=== PATIENT | female | born 1950 | race African-American/Black ===

== ENCOUNTER 2021-12-21 15:59 | Inpatient (IN) | payer OTHER ==
[2021-12-21 16:19] LABS: #Eosinphils 0.2 thou/uL (0.0-0.7); #Lymphocytes 2.1 thou/uL (1.20-3.40); #Monocytes 0.4 thou/uL (0.11-0.59); #Neutrophils 3.9 thou/uL (1.40-6.50); %Basophils 0.5 % (0.0-1.0); %Lymphocytes 31.1 % (21.0-51.0); %Monocytes 6.7 % (0.0-10.0); %Neutrophils 58.7 % (42.0-75.0); Mean Corpuscular Hemoglobin 29.8 pg (27.0-31.0); Mean Corpuscular Volume 90.2 fL (78.0-98.0); Mean Platelet Volume 7.2 fL (7.4-10.4); Platelet Count 279 thou/uL (130-400); RBC Distribution Width 11.4 % (11.5-14.5); Red Blood Cell (RBC) Count 2.69 mill/uL (4.20-5.40); White Blood Cell (WBC) Count 6.6 thou/uL (4.8-10.8)
[2021-12-21 16:37] LABS: Anion Gap 15 mmol/L (10-20); Carbon Dioxide 18 mmol/L (23-31); Chloride 111 mmol/L (98-107); Potassium 4.7 mmol/L (3.5-5.1); Sodium 139 mmol/L (136-145)
[2021-12-21 16:38] LABS: ALT (SGPT) 12 U/L (8-55); AST (SGOT) 13 U/L (5-34); Albumin 3.5 g/dL (3.4-4.8); Alkaline Phosphatase 45 U/L (40-110); BUN (Urea Nitrogen) 45 mg/dL (9.8-20.1); Bilirubin, Total 0.4 mg/dL (0.2-1.2); CK (CPK) 55 U/L (29-168); Calc. Creatinine Clearance 0 mL/min (70-130); Calcium 9.8 mg/dL (7.8-10.44); Estimated GFR 14; Globulin 3.1 g/dL (2.4-3.5); Glucose 135 mg/dL (80-115); Protein, Total 6.6 g/dL (5.8-8.1)
[2021-12-21] MEDS ORDERED: Sodium Chloride 0.9% 1,000 ML IV SCH (18:30)
[2021-12-21] MEDS ORDERED: Acetaminophen 325 MG TAB PO PRN (18:30)
[2021-12-21] MEDS ORDERED: Ondansetron PF 4 MG/2 ML Vial IVP PRN (18:30)
[2021-12-21] MEDS ORDERED: Dextrose 50% Abboject 50 ML SYRINGE SLOW IVP PRN (18:40)
[2021-12-21] MEDS ORDERED: Dextrose 5% in Water 1,000 ML IV PRN (18:40)
[2021-12-21] MEDS ORDERED: HumaLOG 300 UNITS/3 ML VIAL SC PRN ×2 (18:40)
[2021-12-21 19:29] VITALS: BMI 20.5
[2021-12-21] MEDS ORDERED: hydrALAZINE 20 MG/ML VIAL SLOW IVP PRN (19:35)
[2021-12-21 19:44] LABS: Hemoglobin 9.3 g/dL (12.0-16.0)
[2021-12-21 20:09] LABS: Troponin I 0.015 ng/mL (< 0.028)
[2021-12-21] MEDS: Heparin 5,000 UNITS/ML VIAL SC SCH (20:35)
[2021-12-21] MEDS ORDERED: Pantoprazole 40 MG VIAL IVP SCH (21:00)
[2021-12-21] MEDS ORDERED: Docusate 100 MG CAP PO SCH (21:30)
[2021-12-21] MEDS ORDERED: Carvedilol 25 MG TAB PO SCH (21:30)
[2021-12-21] MEDS ORDERED: NIFEdipine XL 90 MG TAB PO SCH (21:30)
[2021-12-21] MEDS ORDERED: busPIRone HCl 5 MG TAB PO SCH (21:30)
[2021-12-21] MEDS ORDERED: Gabapentin 300 MG CAP PO SCH (21:30)
[2021-12-21] MEDS ORDERED: hydrALAZINE 25 MG TAB PO SCH (21:30)
[2021-12-21] MEDS: Melatonin 3 MG TAB PO PRN (22:09)
[2021-12-21 23:02] LABS: Troponin I 0.014 ng/mL (< 0.028)
[2021-12-22 05:09] LABS: #Basophils 0.1 thou/uL (0.0-0.2); #Eosinphils 0.3 thou/uL (0.0-0.7); #Lymphocytes 1.9 thou/uL (1.20-3.40); #Monocytes 0.6 thou/uL (0.11-0.59); #Neutrophils 4.1 thou/uL (1.40-6.50); %Basophils 0.9 % (0.0-1.0); %Eosinophils 3.9 % (0.0-10.0); %Lymphocytes 27.3 % (21.0-51.0); %Monocytes 8.6 % (0.0-10.0); %Neutrophils 59.3 % (42.0-75.0); Hemoglobin 7.9 g/dL (12.0-16.0); Mean Corpuscular HGB CONC 33.5 g/dL (32.0-36.0); Mean Corpuscular Hemoglobin 30.6 pg (27.0-31.0); Mean Corpuscular Volume 91.3 fL (78.0-98.0); Mean Platelet Volume 7.5 fL (7.4-10.4); Platelet Count 272 thou/uL (130-400); RBC Distribution Width 11.6 % (11.5-14.5); White Blood Cell (WBC) Count 6.8 thou/uL (4.8-10.8)
[2021-12-22 05:32] LABS: ALT (SGPT) 10 U/L (8-55); AST (SGOT) 10 U/L (5-34); Albumin 3.2 g/dL (3.4-4.8); Alkaline Phosphatase 41 U/L (40-110); Anion Gap 12 mmol/L (10-20); BUN (Urea Nitrogen) 42 mg/dL (9.8-20.1); Calc. Creatinine Clearance 14 mL/min (70-130); Calcium 9.6 mg/dL (7.8-10.44); Chloride 118 mmol/L (98-107); Estimated GFR 15; Globulin 2.8 g/dL (2.4-3.5); Glucose 114 mg/dL (80-115); Potassium 4.6 mmol/L (3.5-5.1); Sodium 144 mmol/L (136-145)
[2021-12-22 05:33] LABS: Hemoglobin A1c 6.3 % (4.0-6.0)
[2021-12-22 05:41] LABS: Bilirubin, Total 0.4 mg/dL (0.2-1.2); Carbon Dioxide 19 mmol/L (23-31)
[2021-12-22] MEDS: NIFEdipine XL 90 MG TAB PO SCH ×2 (08:20→20:43)
[2021-12-22] MEDS: Calcitriol 0.25 MCG CAP PO SCH (08:21)
[2021-12-22] MEDS: Sodium Bicarbonate Tab 325 MG TAB PO SCH (08:21)
[2021-12-22] MEDS: hydrALAZINE 25 MG TAB PO SCH ×4 (08:21→20:45)
[2021-12-22] MEDS: Gabapentin 300 MG CAP PO SCH ×3 (08:22→20:43)
[2021-12-22] MEDS: Allopurinol 100 MG TAB PO SCH (08:22)
[2021-12-22] MEDS: busPIRone HCl 5 MG TAB PO SCH ×2 (08:22→20:43)
[2021-12-22] MEDS: Heparin 5,000 UNITS/ML VIAL SC SCH ×2 (08:23→20:45)
[2021-12-22] MEDS: Pantoprazole 40 MG VIAL IVP SCH (08:23)
[2021-12-22] MEDS: Carvedilol 25 MG TAB PO SCH ×2 (08:23→17:57)
[2021-12-22] MEDS: Lactated Ringer's 1,000 ML IV SCH (09:09)
[2021-12-22] MEDS ORDERED: hydrALAZINE 25 MG TAB PO SCH (18:00)
[2021-12-22] MEDS: Melatonin 3 MG TAB PO PRN (20:43)
[2021-12-22] MEDS: Docusate 100 MG CAP PO PRN (22:06)
[2021-12-23] MEDS: Lactated Ringer's 1,000 ML IV SCH (04:59)
[2021-12-23 06:38] LABS: Anion Gap 11 mmol/L (10-20); BUN (Urea Nitrogen) 39 mg/dL (9.8-20.1); Calc. Creatinine Clearance 16 mL/min (70-130); Calcium 9.9 mg/dL (7.8-10.44); Carbon Dioxide 19 mmol/L (23-31); Chloride 112 mmol/L (98-107); Estimated GFR 17; Glucose 80 mg/dL (80-115); Potassium 4.2 mmol/L (3.5-5.1); Sodium 138 mmol/L (136-145)
[2021-12-23 06:54] LABS: #Eosinphils 0.3 thou/uL (0.0-0.7); #Lymphocytes 1.8 thou/uL (1.20-3.40); #Monocytes 0.5 thou/uL (0.11-0.59); #Neutrophils 3.8 thou/uL (1.40-6.50); %Basophils 0.1 % (0.0-1.0); %Eosinophils 4.7 % (0.0-10.0); %Lymphocytes 27.5 % (21.0-51.0); %Monocytes 7.5 % (0.0-10.0); %Neutrophils 60.2 % (42.0-75.0); Hemoglobin 7.9 g/dL (12.0-16.0); Mean Corpuscular HGB CONC 32.5 g/dL (32.0-36.0); Mean Corpuscular Hemoglobin 29.5 pg (27.0-31.0); Mean Corpuscular Volume 90.8 fL (78.0-98.0); Mean Platelet Volume 7.5 fL (7.4-10.4); Platelet Count 274 thou/uL (130-400); RBC Distribution Width 11.5 % (11.5-14.5); Red Blood Cell (RBC) Count 2.66 mill/uL (4.20-5.40); White Blood Cell (WBC) Count 6.4 thou/uL (4.8-10.8)
[2021-12-23] MEDS: Carvedilol 25 MG TAB PO SCH (08:14)
[2021-12-23] MEDS: NIFEdipine XL 90 MG TAB PO SCH (08:14)
[2021-12-23] MEDS: hydrALAZINE 25 MG TAB PO SCH ×2 (08:14→14:54)
[2021-12-23] MEDS: Allopurinol 100 MG TAB PO SCH (08:14)
[2021-12-23] MEDS: Calcitriol 0.25 MCG CAP PO SCH (08:15)
[2021-12-23] MEDS: Gabapentin 300 MG CAP PO SCH ×2 (08:15→14:52)
[2021-12-23] MEDS: busPIRone HCl 5 MG TAB PO SCH (08:15)
[2021-12-23] MEDS: Sodium Bicarbonate Tab 325 MG TAB PO SCH (08:15)
[2021-12-23] MEDS: Pantoprazole 40 MG VIAL IVP SCH (08:16)
[2021-12-23] MEDS: Heparin 5,000 UNITS/ML VIAL SC SCH (08:26)
[2021-12-23] MEDS: Docusate 100 MG CAP PO PRN (12:21)
[2021-12-23 15:55] VITALS: BP 113/59; TEMP 97.6
== END 2021-12-23 16:04 | disposition home or self-care (01) | DRG 683 ==
LOC: ERS 15:59 → 2SW 18:16 → OBSVTOIN 12-22 17:29
PROVIDERS: ADMIT Hospitalist; ATTEND Hospitalist
DX: N17.9 Acute kidney failure, unspecified (principal); I13.0 Hypertensive heart and chronic kidney disease with heart failure and stage 1 through stage 4 chronic kidney disease, or unspecified chronic kidney disease; N18.4 Chronic kidney disease, stage 4 (severe); D63.1 Anemia in chronic kidney disease; E11.22 Type 2 diabetes mellitus with diabetic chronic kidney disease; F41.9 Anxiety disorder, unspecified; Z98.51 Tubal ligation status; Z79.899 Other long term (current) drug therapy; Z88.5 Allergy status to narcotic agent
CPT/HCPCS: 36415; 36416; 71045; 74176; 80048; 80053; 82550; 83036; 83605; 83690; 83880; 84484; 85025; 86850; 86900; 86901; 93005; 93306; 96360; 96361; 96372; 96374; 96376; C9113; G0378; J1644; J7050; J7120; U0003; U0005

== ENCOUNTER 2022-01-03 14:31 | Inpatient (IN) | payer OTHER ==
[2022-01-03] MEDS ORDERED: Cefepime 2 GM VIAL ONE (14:52)
[2022-01-03 15:05] LABS: #Eosinphils 0.1 thou/uL (0.0-0.7); #Lymphocytes 1.1 thou/uL (1.20-3.40); #Monocytes 1.2 thou/uL (0.11-0.59); #Neutrophils 7.1 thou/uL (1.40-6.50); %Basophils 0.3 % (0.0-1.0); %Lymphocytes 11.4 % (21.0-51.0); %Monocytes 12.3 % (0.0-10.0); Hemoglobin 9.4 g/dL (12.0-16.0); Mean Corpuscular HGB CONC 33.5 g/dL (32.0-36.0); Mean Corpuscular Hemoglobin 29.5 pg (27.0-31.0); Mean Corpuscular Volume 87.9 fL (78.0-98.0); Mean Platelet Volume 7.7 fL (7.4-10.4); Platelet Count 295 thou/uL (130-400); RBC Distribution Width 11.8 % (11.5-14.5); Red Blood Cell (RBC) Count 3.19 mill/uL (4.20-5.40); White Blood Cell (WBC) Count 9.4 thou/uL (4.8-10.8)
[2022-01-03 15:28] LABS: ALT (SGPT) 12 U/L (8-55); AST (SGOT) 14 U/L (5-34); Albumin 4.2 g/dL (3.4-4.8); Alkaline Phosphatase 51 U/L (40-110); Anion Gap 13 mmol/L (10-20); BUN (Urea Nitrogen) 54 mg/dL (9.8-20.1); Bilirubin, Total 0.2 mg/dL (0.2-1.2); CK (CPK) 53 U/L (29-168); Calc. Creatinine Clearance 0 mL/min (70-130); Calcium 10.8 mg/dL (7.8-10.44); Carbon Dioxide 22 mmol/L (23-31); Chloride 110 mmol/L (98-107); Estimated GFR 15; Globulin 3.8 g/dL (2.4-3.5); Glucose 125 mg/dL (80-115); Lipase 24 U/L (8-78); Magnesium 1.6 mg/dL (1.6-2.6); Potassium 4.3 mmol/L (3.5-5.1); Sodium 141 mmol/L (136-145)
[2022-01-03] MEDS ORDERED: Vancomycin 1 GM/200 ML BAG ONE (15:37)
[2022-01-03 15:50] LABS: CKMB 0.5 ng/mL (0-6.6)
[2022-01-03] MEDS ORDERED: Aspirin Chewable 81 MG TAB ONE (16:15)
[2022-01-03 18:14] LABS: Troponin I 0.038 ng/mL (< 0.028)
[2022-01-03] MEDS ORDERED: Ondansetron PF 4 MG/2 ML Vial IVP PRN (21:24)
[2022-01-03] MEDS ORDERED: hydrALAZINE 20 MG/ML VIAL SLOW IVP PRN (21:28)
[2022-01-03] MEDS ORDERED: Bisacodyl 10 MG SUPP PR PRN (21:28)
[2022-01-03] MEDS ORDERED: Acetaminophen 650 MG Suppository PR PRN (21:31)
[2022-01-03 22:20] LABS: Troponin I 0.092 ng/mL (< 0.028)
[2022-01-03] MEDS: Heparin 5,000 UNITS/ML VIAL SC SCH (22:27)
[2022-01-03] MEDS: Sodium Chloride 0.9% 1,000 ML IV SCH (22:30)
[2022-01-03 23:07] LABS: Bacteria/HPF None Seen HPF (None Seen); Bilirubin Negative (Negative); Blood, Urine Trace (Negative); Clarity Clear (Clear); Glucose, Urine (Dipstick) 30 mg/dL (Negative); Ketone, Urine Negative (Negative); Leukocyte Negative Leu/uL (Negative); Nitrite Negative (Negative); Protein, Urine (Dipstick) 100 mg/dL (Neg-Trace); RBC/HPF 0-3 HPF (0-3); Specific Gravity, Urine 1.011 (1.002-1.036); Squamous Epithelial 0-3 HPF (0-3); Urobilinogen Normal mg/dL (Less than 2); WBC/HPF 0-3 HPF (0-3); pH, Urine 5.5 (5.0-9.0)
[2022-01-03 23:08] LABS: Urine Culture Reflex No No
[2022-01-04] MEDS ORDERED: Dextrose 5% in Water 1,000 ML IV PRN (00:25)
[2022-01-04] MEDS ORDERED: Dextrose 50% Abboject 50 ML SYRINGE SLOW IVP PRN (00:25)
[2022-01-04] MEDS ORDERED: HumaLOG 300 UNITS/3 ML VIAL SC PRN ×2 (00:25)
[2022-01-04 01:30] LABS: Amphetamine Not Detected (NotDetected); Barbiturates Screen Not Detected (NotDetected); Benzodiazepine Screen Not Detected (NotDetected); Cocaine Metabolite Screen Not Detected (NotDetected); Methadone Not Detected (NotDetected); Methamphetamine Not Detected (NotDetected); Opiate Screen Not Detected (NotDetected); Oxycodone Screen Not Detected (NotDetected); Phencyclidine (PCP) Not Detected (NotDetected); THC/Cannabinoid Screen Not Detected (NotDetected); Tricyclic Screen Not Detected (NotDetected)
[2022-01-04 01:56] VITALS: BMI 21.9
[2022-01-04] MEDS: Cefepime 1 GM in Sodium Chloride 0.9% 100 ML IVPB SCH ×2 (02:30→15:21)
[2022-01-04 05:14] LABS: #Eosinphils 0.1 thou/uL (0.0-0.7); #Lymphocytes 1.7 thou/uL (1.20-3.40); #Monocytes 1.4 thou/uL (0.11-0.59); #Neutrophils 15.6 thou/uL (1.40-6.50); %Basophils 0.1 % (0.0-1.0); %Eosinophils 0.4 % (0.0-10.0); %Lymphocytes 9.2 % (21.0-51.0); %Monocytes 7.3 % (0.0-10.0); Hemoglobin 8.6 g/dL (12.0-16.0); Mean Corpuscular HGB CONC 30.1 g/dL (32.0-36.0); Mean Corpuscular Hemoglobin 27.2 pg (27.0-31.0); Mean Corpuscular Volume 90.2 fL (78.0-98.0); Mean Platelet Volume 7.9 fL (7.4-10.4); Platelet Count 203 thou/uL (130-400); Red Blood Cell (RBC) Count 3.15 mill/uL (4.20-5.40); White Blood Cell (WBC) Count 18.7 thou/uL (4.8-10.8)
[2022-01-04 05:35] LABS: Vancomycin, Random 12.6 ug/mL (See Comment)
[2022-01-04] MEDS ORDERED: Vancomycin HCl 500 MG in Sodium Chloride 0.9% 100 ML IVPB SCH (08:00)
[2022-01-04] MEDS: Heparin 5,000 UNITS/ML VIAL SC SCH ×2 (09:19→21:20)
[2022-01-04 09:49] LABS: ALT (SGPT) 12 U/L (8-55); AST (SGOT) 16 U/L (5-34); Albumin 3.6 g/dL (3.4-4.8); Alkaline Phosphatase 43 U/L (40-110); Anion Gap 14 mmol/L (10-20); BUN (Urea Nitrogen) 47 mg/dL (9.8-20.1); Bilirubin, Total 0.4 mg/dL (0.2-1.2); Calc. Creatinine Clearance 18 mL/min (70-130); Calcium 9.9 mg/dL (7.8-10.44); Carbon Dioxide 18 mmol/L (23-31); Chloride 116 mmol/L (98-107); Estimated GFR 18; Globulin 3.1 g/dL (2.4-3.5); Glucose 98 mg/dL (80-115); Protein, Total 6.7 g/dL (5.8-8.1); Sodium 144 mmol/L (136-145); Troponin I 0.111 ng/mL (< 0.028)
[2022-01-04] MEDS: Calcitriol 0.25 MCG CAP PO SCH (11:25)
[2022-01-04] MEDS: Allopurinol 100 MG TAB PO SCH (11:26)
[2022-01-04] MEDS: NIFEdipine XL 90 MG TAB PO SCH ×2 (11:26→21:20)
[2022-01-04] MEDS: hydrALAZINE 25 MG TAB PO SCH ×4 (11:27→21:20)
[2022-01-04] MEDS: Carvedilol 25 MG TAB PO SCH ×2 (11:27→21:19)
[2022-01-04] MEDS: Sodium Chloride 0.9% 1,000 ML IV SCH (13:47)
[2022-01-04] MEDS ORDERED: Vancomycin 0.001 GM in Premix Bag 1 BAG IVPB SCH (16:00)
[2022-01-04] MEDS: Atorvastatin Calcium 40 MG TAB PO SCH (21:18)
[2022-01-05] MEDS: Cefepime 1 GM in Sodium Chloride 0.9% 100 ML IVPB SCH ×2 (03:08→13:52)
[2022-01-05] MEDS: Sodium Chloride 0.9% 1,000 ML IV SCH ×2 (03:21→16:48)
[2022-01-05] MEDS ORDERED: Acetaminophen 325 MG TAB PO PRN (03:21)
[2022-01-05] MEDS: Carvedilol 25 MG TAB PO SCH ×2 (08:24→21:50)
[2022-01-05] MEDS: NIFEdipine XL 90 MG TAB PO SCH ×2 (08:24→21:51)
[2022-01-05] MEDS: Calcitriol 0.25 MCG CAP PO SCH (08:24)
[2022-01-05] MEDS: Allopurinol 100 MG TAB PO SCH (08:24)
[2022-01-05] MEDS: hydrALAZINE 25 MG TAB PO SCH ×4 (08:24→21:50)
[2022-01-05] MEDS: Heparin 5,000 UNITS/ML VIAL SC SCH ×2 (08:25→21:51)
[2022-01-05 08:56] LABS: #Eosinphils 0.2 thou/uL (0.0-0.7); #Lymphocytes 2.3 thou/uL (1.20-3.40); #Monocytes 0.8 thou/uL (0.11-0.59); #Neutrophils 9.9 thou/uL (1.40-6.50); %Basophils 0.1 % (0.0-1.0); %Eosinophils 1.4 % (0.0-10.0); %Lymphocytes 17.2 % (21.0-51.0); %Monocytes 6.4 % (0.0-10.0); %Neutrophils 74.9 % (42.0-75.0); Hemoglobin 7.8 g/dL (12.0-16.0); Mean Corpuscular HGB CONC 33.5 g/dL (32.0-36.0); Mean Corpuscular Hemoglobin 29.9 pg (27.0-31.0); Mean Corpuscular Volume 89.3 fL (78.0-98.0); Mean Platelet Volume 7.7 fL (7.4-10.4); Platelet Count 217 thou/uL (130-400); Red Blood Cell (RBC) Count 2.59 mill/uL (4.20-5.40); White Blood Cell (WBC) Count 13.2 thou/uL (4.8-10.8)
[2022-01-05 09:12] LABS: Vancomycin, Random 14.1 ug/mL (See Comment)
[2022-01-05 09:48] LABS: Anion Gap 13 mmol/L (10-20); BUN (Urea Nitrogen) 46 mg/dL (9.8-20.1); Calc. Creatinine Clearance 18 mL/min (70-130); Calcium 9.6 mg/dL (7.8-10.44); Carbon Dioxide 16 mmol/L (23-31); Chloride 114 mmol/L (98-107); Estimated GFR 19; Glucose 78 mg/dL (80-115); Potassium 3.6 mmol/L (3.5-5.1); Sodium 139 mmol/L (136-145)
[2022-01-05 09:54] LABS: Troponin I 0.073 ng/mL (< 0.028)
[2022-01-05] MEDS: Vancomycin HCl 500 MG in Sodium Chloride 0.9% 100 ML IVPB SCH (11:13)
[2022-01-05] MEDS: Benzonatate 100 MG CAP PO SCH ×2 (13:52→21:50)
[2022-01-05 16:39] LABS: Troponin I 0.048 ng/mL (< 0.028)
[2022-01-05] MEDS: Atorvastatin Calcium 40 MG TAB PO SCH (21:50)
[2022-01-05 22:27] LABS: Troponin I 0.428 ng/mL (< 0.028)
[2022-01-05] MEDS ORDERED: Heparin 10,000 UNITS/ 10 ML VIAL SLOW IVP SCH (22:45)
[2022-01-05] MEDS ORDERED: Heparin 25,000 units/D5W 500 ML IVPB SCH ×2 (22:45→23:43)
[2022-01-06 01:02] LABS: Hemoglobin 7.1 g/dL (12.0-16.0); Platelet Count 187 thou/uL (130-400)
[2022-01-06 02:39] LABS: #Eosinphils 0.2 thou/uL (0.0-0.7); #Lymphocytes 1.8 thou/uL (1.20-3.40); #Monocytes 0.6 thou/uL (0.11-0.59); #Neutrophils 7.8 thou/uL (1.40-6.50); %Basophils 0.4 % (0.0-1.0); %Eosinophils 2.1 % (0.0-10.0); %Lymphocytes 17.1 % (21.0-51.0); %Monocytes 5.7 % (0.0-10.0); %Neutrophils 74.8 % (42.0-75.0); Hemoglobin 6.9 g/dL (12.0-16.0); Mean Corpuscular HGB CONC 34.3 g/dL (32.0-36.0); Mean Corpuscular Hemoglobin 30.3 pg (27.0-31.0); Mean Corpuscular Volume 88.5 fL (78.0-98.0); Mean Platelet Volume 7.9 fL (7.4-10.4); Platelet Count 193 thou/uL (130-400); Red Blood Cell (RBC) Count 2.27 mill/uL (4.20-5.40); White Blood Cell (WBC) Count 10.5 thou/uL (4.8-10.8)
[2022-01-06 03:09] LABS: Anion Gap 13 mmol/L (10-20); BUN (Urea Nitrogen) 42 mg/dL (9.8-20.1); Calc. Creatinine Clearance 19 mL/min (70-130); Calcium 9.6 mg/dL (7.8-10.44); Carbon Dioxide 15 mmol/L (23-31); Chloride 114 mmol/L (98-107); Estimated GFR 20; Glucose 107 mg/dL (80-115); Potassium 3.6 mmol/L (3.5-5.1); Sodium 138 mmol/L (136-145)
[2022-01-06] MEDS: Cefepime 1 GM in Sodium Chloride 0.9% 100 ML IVPB SCH ×2 (03:23→16:09)
[2022-01-06 05:03] LABS: Troponin I 0.054 ng/mL (< 0.028)
[2022-01-06] MEDS: Sodium Chloride 0.9% 1,000 ML IV SCH (09:07)
[2022-01-06] MEDS: NIFEdipine XL 90 MG TAB PO SCH ×2 (09:09→22:06)
[2022-01-06] MEDS: Carvedilol 25 MG TAB PO SCH ×2 (09:09→22:06)
[2022-01-06] MEDS: hydrALAZINE 25 MG TAB PO SCH ×4 (09:10→22:07)
[2022-01-06] MEDS: Benzonatate 100 MG CAP PO SCH ×3 (09:10→22:07)
[2022-01-06] MEDS: Calcitriol 0.25 MCG CAP PO SCH (09:10)
[2022-01-06] MEDS: Allopurinol 100 MG TAB PO SCH (09:11)
[2022-01-06] MEDS: Pantoprazole 40 MG VIAL IVP SCH ×2 (09:11→22:08)
[2022-01-06 10:31] LABS: Hemoglobin 8.9 g/dL (12.0-16.0)
[2022-01-06 10:38] LABS: Vancomycin, Trough 15.4 ug/mL
[2022-01-06] MEDS ORDERED: Vancomycin HCl 500 MG in Sodium Chloride 0.9% 100 ML IVPB SCH (11:00)
[2022-01-06] MEDS ORDERED: Vancomycin HCl 250 MG in Sodium Chloride 0.9% 100 ML IVPB SCH (11:45)
[2022-01-06] MEDS: Vancomycin HCl 500 MG in Sodium Chloride 0.9% 100 ML IVPB SCH (12:40)
[2022-01-06 15:10] LABS: Iron 58 ug/dL (50-170); Iron Binding Capacity, Total 128 mcg/dL (265-497)
[2022-01-06] MEDS: Atorvastatin Calcium 40 MG TAB PO SCH (22:07)
[2022-01-07] MEDS: traZODone HCl 50 MG TAB PO PRN (01:25)
[2022-01-07] MEDS: Sodium Chloride 0.9% 1,000 ML IV SCH ×2 (01:39→11:49)
[2022-01-07] MEDS: Cefepime 1 GM in Sodium Chloride 0.9% 100 ML IVPB SCH ×2 (03:48→13:57)
[2022-01-07 05:52] LABS: #Eosinphils 0.1 thou/uL (0.0-0.7); #Monocytes 0.8 thou/uL (0.11-0.59); #Neutrophils 7.1 thou/uL (1.40-6.50); %Eosinophils 1.2 % (0.0-10.0); %Neutrophils 78.8 % (42.0-75.0); Hemoglobin 9.2 g/dL (12.0-16.0); Mean Corpuscular HGB CONC 33.9 g/dL (32.0-36.0); Mean Corpuscular Hemoglobin 30.5 pg (27.0-31.0); Mean Corpuscular Volume 89.9 fL (78.0-98.0); Mean Platelet Volume 8.3 fL (7.4-10.4); Platelet Count 213 thou/uL (130-400); RBC Distribution Width 12.7 % (11.5-14.5); Red Blood Cell (RBC) Count 3.03 mill/uL (4.20-5.40)
[2022-01-07 06:16] LABS: Anion Gap 12 mmol/L (10-20); BUN (Urea Nitrogen) 39 mg/dL (9.8-20.1); Calc. Creatinine Clearance 19 mL/min (70-130); Calcium 9.6 mg/dL (7.8-10.44); Carbon Dioxide 14 mmol/L (23-31); Chloride 116 mmol/L (98-107); Estimated GFR 20; Glucose 119 mg/dL (80-115); Potassium 3.5 mmol/L (3.5-5.1); Sodium 138 mmol/L (136-145)
[2022-01-07 09:43] LABS: Vancomycin, Random 16.5 ug/mL (See Comment)
[2022-01-07] MEDS: NIFEdipine XL 90 MG TAB PO SCH ×2 (10:32→22:15)
[2022-01-07] MEDS: Calcitriol 0.25 MCG CAP PO SCH (10:32)
[2022-01-07] MEDS: Pantoprazole 40 MG VIAL IVP SCH ×2 (10:32→22:16)
[2022-01-07] MEDS: Allopurinol 100 MG TAB PO SCH (10:33)
[2022-01-07] MEDS: hydrALAZINE 25 MG TAB PO SCH ×4 (10:33→22:14)
[2022-01-07] MEDS: Carvedilol 25 MG TAB PO SCH ×2 (10:33→22:14)
[2022-01-07] MEDS: Benzonatate 100 MG CAP PO SCH ×3 (10:46→22:20)
[2022-01-07] MEDS ORDERED: Vancomycin HCl 250 MG in Sodium Chloride 0.9% 100 ML IVPB SCH (11:00)
[2022-01-07] MEDS ORDERED: Polyethylene Glycol 3350 17 GM Packet PO PRN (11:27)
[2022-01-07 12:18] LABS: Bacteria/HPF 4+ HPF (None Seen); Bilirubin Negative (Negative); Blood, Urine Trace (Negative); Clarity Turbid (Clear); Glucose, Urine (Dipstick) Normal (Negative); Ketone, Urine Negative (Negative); Leukocyte 500 Leu/uL (Negative); Nitrite Negative (Negative); Protein, Urine (Dipstick) 100 mg/dL (Neg-Trace); Specific Gravity, Urine 1.012 (1.002-1.036); Squamous Epithelial 0-3 HPF (0-3); Urobilinogen Normal mg/dL (Less than 2); WBC/HPF 21-50 HPF (0-3); pH, Urine 5.5 (5.0-9.0)
[2022-01-07 12:19] LABS: Urine Culture Reflex Yes Yes
[2022-01-07] MEDS ORDERED: Calcium Carbonate 500 MG ChewTAB PO PRN (14:31)
[2022-01-07] MEDS ORDERED: Metoclopramide HCl 10 MG/2 ML VIAL IVP PRN (16:30)
[2022-01-07] MEDS: Acetaminophen 500 MG TAB PO PRN (16:58)
[2022-01-07] MEDS: Atorvastatin Calcium 40 MG TAB PO SCH (22:14)
[2022-01-07] MEDS: Senokot S 8.6-50 MG TAB PO SCH (22:16)
[2022-01-07 22:59] LABS: Hemoglobin 9.6 g/dL (12.0-16.0); Platelet Count 233 thou/uL (130-400)
[2022-01-08] MEDS: Cefepime 1 GM in Sodium Chloride 0.9% 100 ML IVPB SCH ×2 (02:10→13:55)
[2022-01-08] MEDS: Acetaminophen 500 MG TAB PO PRN (02:10)
[2022-01-08] MEDS: Sodium Chloride 0.9% 1,000 ML IV SCH ×2 (02:11→08:57)
[2022-01-08 07:08] LABS: #Eosinphils 0.1 thou/uL (0.0-0.7); #Lymphocytes 1.5 thou/uL (1.20-3.40); #Monocytes 0.7 thou/uL (0.11-0.59); #Neutrophils 7.5 thou/uL (1.40-6.50); %Basophils 0.4 % (0.0-1.0); %Eosinophils 0.6 % (0.0-10.0); %Lymphocytes 15.6 % (21.0-51.0); %Monocytes 6.9 % (0.0-10.0); %Neutrophils 76.5 % (42.0-75.0); Hemoglobin 8.5 g/dL (12.0-16.0); Mean Corpuscular HGB CONC 33.2 g/dL (32.0-36.0); Mean Corpuscular Volume 90.6 fL (78.0-98.0); Mean Platelet Volume 7.9 fL (7.4-10.4); Platelet Count 215 thou/uL (130-400); RBC Distribution Width 12.8 % (11.5-14.5); Red Blood Cell (RBC) Count 2.81 mill/uL (4.20-5.40); White Blood Cell (WBC) Count 9.8 thou/uL (4.8-10.8)
[2022-01-08 07:28] LABS: ALT (SGPT) 9 U/L (8-55); AST (SGOT) 13 U/L (5-34); Albumin 2.9 g/dL (3.4-4.8); Alkaline Phosphatase 35 U/L (40-110); Anion Gap 13 mmol/L (10-20); BUN (Urea Nitrogen) 40 mg/dL (9.8-20.1); Bilirubin, Total 0.3 mg/dL (0.2-1.2); Calc. Creatinine Clearance 18 mL/min (70-130); Calcium 9.5 mg/dL (7.8-10.44); Carbon Dioxide 13 mmol/L (23-31); Chloride 120 mmol/L (98-107); Estimated GFR 19; Globulin 2.8 g/dL (2.4-3.5); Glucose 94 mg/dL (80-115); Potassium 3.5 mmol/L (3.5-5.1); Protein, Total 5.7 g/dL (5.8-8.1); Sodium 142 mmol/L (136-145)
[2022-01-08] MEDS: Calcitriol 0.25 MCG CAP PO SCH (08:55)
[2022-01-08] MEDS: Senokot S 8.6-50 MG TAB PO SCH ×2 (08:56→20:30)
[2022-01-08] MEDS: Carvedilol 25 MG TAB PO SCH ×2 (08:56→20:30)
[2022-01-08] MEDS: Pantoprazole 40 MG VIAL IVP SCH ×2 (08:56→20:29)
[2022-01-08] MEDS: Allopurinol 100 MG TAB PO SCH (08:56)
[2022-01-08] MEDS: Famotidine/PF 20 mg/2ml Vial SLOW IVP SCH (08:56)
[2022-01-08] MEDS: hydrALAZINE 25 MG TAB PO SCH ×4 (08:56→20:30)
[2022-01-08] MEDS: Benzonatate 100 MG CAP PO SCH ×3 (08:57→20:31)
[2022-01-08] MEDS: NIFEdipine XL 90 MG TAB PO SCH ×2 (08:57→20:30)
[2022-01-08] MEDS ORDERED: Vancomycin HCl 250 MG in Sodium Chloride 0.9% 100 ML IVPB SCH (11:00)
[2022-01-08] MEDS: Atorvastatin Calcium 40 MG TAB PO SCH (20:30)
[2022-01-08] MEDS: traZODone HCl 50 MG TAB PO PRN (23:35)
[2022-01-09] MEDS: Sodium Chloride 0.9% 1,000 ML IV SCH ×3 (02:25→14:10)
[2022-01-09] MEDS: Cefepime 1 GM in Sodium Chloride 0.9% 100 ML IVPB SCH ×2 (03:27→14:10)
[2022-01-09] MEDS: Acetaminophen 500 MG TAB PO PRN (04:40)
[2022-01-09 04:59] LABS: #Eosinphils 0.1 thou/uL (0.0-0.7); #Lymphocytes 1.5 thou/uL (1.20-3.40); #Neutrophils 7.2 thou/uL (1.40-6.50); %Basophils 0.1 % (0.0-1.0); %Eosinophils 1.1 % (0.0-10.0); %Lymphocytes 15.1 % (21.0-51.0); %Monocytes 10.2 % (0.0-10.0); %Neutrophils 73.5 % (42.0-75.0); Mean Corpuscular HGB CONC 32.8 g/dL (32.0-36.0); Mean Corpuscular Hemoglobin 29.8 pg (27.0-31.0); Mean Corpuscular Volume 90.8 fL (78.0-98.0); Mean Platelet Volume 7.8 fL (7.4-10.4); Platelet Count 219 thou/uL (130-400); Red Blood Cell (RBC) Count 2.69 mill/uL (4.20-5.40); White Blood Cell (WBC) Count 9.8 thou/uL (4.8-10.8)
[2022-01-09 05:19] LABS: ALT (SGPT) 8 U/L (8-55); AST (SGOT) 12 U/L (5-34); Albumin 2.8 g/dL (3.4-4.8); Alkaline Phosphatase 34 U/L (40-110); Anion Gap 12 mmol/L (10-20); BUN (Urea Nitrogen) 37 mg/dL (9.8-20.1); Bilirubin, Total 0.2 mg/dL (0.2-1.2); Calc. Creatinine Clearance 18 mL/min (70-130); Calcium 9.6 mg/dL (7.8-10.44); Carbon Dioxide 12 mmol/L (23-31); Chloride 121 mmol/L (98-107); Estimated GFR 18; Glucose 124 mg/dL (80-115); Potassium 3.4 mmol/L (3.5-5.1); Protein, Total 5.8 g/dL (5.8-8.1); Sodium 142 mmol/L (136-145)
[2022-01-09] MEDS: Calcitriol 0.25 MCG CAP PO SCH (08:53)
[2022-01-09] MEDS: Famotidine/PF 20 mg/2ml Vial SLOW IVP SCH (08:53)
[2022-01-09] MEDS: Carvedilol 25 MG TAB PO SCH ×2 (08:54→20:19)
[2022-01-09] MEDS: hydrALAZINE 25 MG TAB PO SCH ×4 (08:54→20:19)
[2022-01-09] MEDS: Pantoprazole 40 MG VIAL IVP SCH (08:54)
[2022-01-09] MEDS: NIFEdipine XL 90 MG TAB PO SCH ×2 (08:54→20:19)
[2022-01-09] MEDS: Benzonatate 100 MG CAP PO SCH ×3 (08:54→20:19)
[2022-01-09] MEDS: Allopurinol 100 MG TAB PO SCH (08:54)
[2022-01-09] MEDS: Senokot S 8.6-50 MG TAB PO SCH ×2 (08:54→20:19)
[2022-01-09 19:05] LABS: Hemoglobin 7.9 g/dL (12.0-16.0)
[2022-01-09] MEDS: Atorvastatin Calcium 40 MG TAB PO SCH (20:20)
[2022-01-09] MEDS: traZODone HCl 50 MG TAB PO PRN (20:20)
[2022-01-10] MEDS: Sodium Chloride 0.9% 1,000 ML IV SCH ×2 (04:22→15:41)
[2022-01-10] MEDS: Cefepime 1 GM in Sodium Chloride 0.9% 100 ML IVPB SCH ×2 (04:22→15:41)
[2022-01-10] MEDS: Pantoprazole 40 MG VIAL IVP SCH ×3 (05:21→22:43)
[2022-01-10] MEDS: Allopurinol 100 MG TAB PO SCH (08:50)
[2022-01-10] MEDS: Calcitriol 0.25 MCG CAP PO SCH (08:50)
[2022-01-10] MEDS: Benzonatate 100 MG CAP PO SCH ×3 (08:50→22:45)
[2022-01-10] MEDS: Carvedilol 25 MG TAB PO SCH ×2 (08:51→22:42)
[2022-01-10] MEDS: Senokot S 8.6-50 MG TAB PO SCH ×2 (08:52→22:43)
[2022-01-10] MEDS: Famotidine/PF 20 mg/2ml Vial SLOW IVP SCH (08:52)
[2022-01-10] MEDS: NIFEdipine XL 90 MG TAB PO SCH ×2 (08:52→22:42)
[2022-01-10] MEDS: hydrALAZINE 25 MG TAB PO SCH ×4 (08:52→22:43)
[2022-01-10 09:07] LABS: #Basophils 0.1 thou/uL (0.0-0.2); #Eosinphils 0.2 thou/uL (0.0-0.7); #Lymphocytes 1.5 thou/uL (1.20-3.40); #Monocytes 1.3 thou/uL (0.11-0.59); #Neutrophils 10.5 thou/uL (1.40-6.50); %Basophils 0.6 % (0.0-1.0); %Eosinophils 1.3 % (0.0-10.0); %Monocytes 9.8 % (0.0-10.0); %Neutrophils 77.4 % (42.0-75.0); Hemoglobin 8.8 g/dL (12.0-16.0); Mean Corpuscular HGB CONC 33.2 g/dL (32.0-36.0); Mean Corpuscular Hemoglobin 30.3 pg (27.0-31.0); Mean Corpuscular Volume 91.4 fL (78.0-98.0); Mean Platelet Volume 7.8 fL (7.4-10.4); Platelet Count 279 thou/uL (130-400); RBC Distribution Width 13.2 % (11.5-14.5); Red Blood Cell (RBC) Count 2.91 mill/uL (4.20-5.40); White Blood Cell (WBC) Count 13.6 thou/uL (4.8-10.8)
[2022-01-10 09:26] LABS: Anion Gap 14 mmol/L (10-20); BUN (Urea Nitrogen) 38 mg/dL (9.8-20.1); Calc. Creatinine Clearance 18 mL/min (70-130); Calcium 10.4 mg/dL (7.8-10.44); Carbon Dioxide 11 mmol/L (23-31); Chloride 122 mmol/L (98-107); Estimated GFR 18; Glucose 114 mg/dL (80-115); Potassium 3.6 mmol/L (3.5-5.1); Sodium 143 mmol/L (136-145)
[2022-01-10] MEDS: Atorvastatin Calcium 40 MG TAB PO SCH (22:42)
[2022-01-10] MEDS: Mirtazapine 15 MG TAB PO SCH (22:42)
[2022-01-10] MEDS: Acetaminophen 500 MG TAB PO PRN (23:47)
[2022-01-11] MEDS: Sodium Chloride 0.9% 1,000 ML IV SCH ×3 (04:30→04:44)
[2022-01-11 05:02] LABS: #Eosinphils 0.4 thou/uL (0.0-0.7); #Lymphocytes 2.1 thou/uL (1.20-3.40); #Monocytes 1.4 thou/uL (0.11-0.59); #Neutrophils 7.7 thou/uL (1.40-6.50); %Basophils 0.2 % (0.0-1.0); %Eosinophils 3.2 % (0.0-10.0); %Lymphocytes 18.3 % (21.0-51.0); %Monocytes 11.7 % (0.0-10.0); %Neutrophils 66.5 % (42.0-75.0); Hemoglobin 8.7 g/dL (12.0-16.0); Mean Corpuscular HGB CONC 32.3 g/dL (32.0-36.0); Mean Corpuscular Hemoglobin 30.2 pg (27.0-31.0); Mean Corpuscular Volume 93.6 fL (78.0-98.0); Mean Platelet Volume 7.9 fL (7.4-10.4); Platelet Count 316 thou/uL (130-400); RBC Distribution Width 13.4 % (11.5-14.5); Red Blood Cell (RBC) Count 2.89 mill/uL (4.20-5.40); White Blood Cell (WBC) Count 11.6 thou/uL (4.8-10.8)
[2022-01-11 05:19] LABS: Anion Gap 11 mmol/L (10-20); BUN (Urea Nitrogen) 34 mg/dL (9.8-20.1); Calc. Creatinine Clearance 18 mL/min (70-130); Carbon Dioxide 12 mmol/L (23-31); Chloride 124 mmol/L (98-107); Estimated GFR 19; Glucose 108 mg/dL (80-115); Potassium 3.3 mmol/L (3.5-5.1); Sodium 144 mmol/L (136-145)
[2022-01-11] MEDS ORDERED: Potassium Chloride 20 MEQ TAB PO SCH (09:15)
[2022-01-11] MEDS ORDERED: Docusate 100 MG CAP PO SCH (09:30)
[2022-01-11] MEDS ORDERED: Polyethylene Glycol 3350 17 GM Packet PO SCH (09:45)
[2022-01-11] MEDS: Senokot S 8.6-50 MG TAB PO SCH ×2 (09:53→22:07)
[2022-01-11] MEDS: Calcitriol 0.25 MCG CAP PO SCH (09:53)
[2022-01-11] MEDS: Carvedilol 25 MG TAB PO SCH ×2 (09:55→22:07)
[2022-01-11] MEDS: Sodium Bicarbonate 150 MEQ in Dextrose 5% in Water 1,000 ML IV SCH (09:55)
[2022-01-11] MEDS: Benzonatate 100 MG CAP PO SCH ×3 (09:55→22:07)
[2022-01-11] MEDS: NIFEdipine XL 90 MG TAB PO SCH ×2 (09:55→22:06)
[2022-01-11] MEDS: Allopurinol 100 MG TAB PO SCH (09:55)
[2022-01-11] MEDS: Pantoprazole 40 MG VIAL IVP SCH (09:55)
[2022-01-11] MEDS: hydrALAZINE 25 MG TAB PO SCH ×3 (09:55→18:03)
[2022-01-11] MEDS ORDERED: Epoetin (ESRD) 10,000 UNITS/ML VIAL SC SCH (11:15)
[2022-01-11] MEDS: Ferrous Sulfate 325 MG TAB PO SCH (18:03)
[2022-01-11] MEDS: Famotidine/PF 20 mg/2ml Vial SLOW IVP SCH (21:05)
[2022-01-11] MEDS: Docusate 100 MG CAP PO SCH (22:06)
[2022-01-11] MEDS: Atorvastatin Calcium 40 MG TAB PO SCH (22:06)
[2022-01-11] MEDS: Mirtazapine 15 MG TAB PO SCH (22:07)
[2022-01-12] MEDS ORDERED: Benzonatate 100 MG CAP PO PRN
[2022-01-12] MEDS ORDERED: Acetaminophen 650 MG Suppository PR PRN
[2022-01-12] MEDS ORDERED: Acetaminophen 325 MG TAB PO PRN
[2022-01-12] MEDS: hydrALAZINE 25 MG TAB PO SCH ×4 (01:13→19:55)
[2022-01-12] MEDS: Albuterol 200 PUFF (6.7GM INHALER) INH PRN ×2 (01:14→09:58)
[2022-01-12] MEDS: Sodium Bicarbonate 150 MEQ in Dextrose 5% in Water 1,000 ML IV SCH ×2 (02:33→17:34)
[2022-01-12 05:39] LABS: #Eosinphils 0.4 thou/uL (0.0-0.7); #Lymphocytes 2.1 thou/uL (1.20-3.40); #Monocytes 1.2 thou/uL (0.11-0.59); #Neutrophils 5.5 thou/uL (1.40-6.50); %Basophils 0.3 % (0.0-1.0); %Eosinophils 4.1 % (0.0-10.0); %Lymphocytes 22.9 % (21.0-51.0); %Neutrophils 59.6 % (42.0-75.0); Hemoglobin 7.8 g/dL (12.0-16.0); Mean Corpuscular HGB CONC 34.6 g/dL (32.0-36.0); Mean Corpuscular Volume 89.6 fL (78.0-98.0); Platelet Count 302 thou/uL (130-400); RBC Distribution Width 13.1 % (11.5-14.5); White Blood Cell (WBC) Count 9.2 thou/uL (4.8-10.8)
[2022-01-12 05:49] LABS: Anion Gap 8 mmol/L (10-20); BUN (Urea Nitrogen) 30 mg/dL (9.8-20.1); Calc. Creatinine Clearance 19 mL/min (70-130); Calcium 9.6 mg/dL (7.8-10.44); Carbon Dioxide 22 mmol/L (23-31); Chloride 118 mmol/L (98-107); Estimated GFR 20; Glucose 167 mg/dL (80-115); Sodium 145 mmol/L (136-145)
[2022-01-12 05:51] LABS: Potassium 2.8 mmol/L (3.5-5.1)
[2022-01-12] MEDS ORDERED: Potassium Chloride 20 MEQ TAB PO SCH (06:00)
[2022-01-12 06:19] LABS: Magnesium 1.5 mg/dL (1.6-2.6)
[2022-01-12] MEDS ORDERED: Potassium Bicarbonate/Cit Ac 20 MEQ TAB PO SCH (06:45)
[2022-01-12] MEDS: NIFEdipine XL 90 MG TAB PO SCH ×2 (09:56→19:54)
[2022-01-12] MEDS: Calcitriol 0.25 MCG CAP PO SCH (09:56)
[2022-01-12] MEDS: Senokot S 8.6-50 MG TAB PO SCH ×2 (09:56→19:55)
[2022-01-12] MEDS: Benzonatate 100 MG CAP PO SCH ×3 (09:57→19:55)
[2022-01-12] MEDS: Polyethylene Glycol 3350 17 GM Packet PO SCH (09:57)
[2022-01-12] MEDS: Allopurinol 100 MG TAB PO SCH (09:57)
[2022-01-12] MEDS: Docusate 100 MG CAP PO SCH ×2 (09:57→19:56)
[2022-01-12] MEDS: Ferrous Sulfate 325 MG TAB PO SCH ×2 (09:57→17:34)
[2022-01-12] MEDS: Carvedilol 25 MG TAB PO SCH ×2 (09:57→19:55)
[2022-01-12] MEDS ORDERED: hydrALAZINE 25 MG TAB PO SCH (13:00)
[2022-01-12 13:50] LABS: Magnesium 1.8 mg/dL (1.6-2.6)
[2022-01-12] MEDS: Mirtazapine 15 MG TAB PO SCH (19:54)
[2022-01-12] MEDS: Atorvastatin Calcium 40 MG TAB PO SCH (19:55)
[2022-01-13] MEDS: hydrALAZINE 25 MG TAB PO SCH ×4 (02:14→20:58)
[2022-01-13 05:41] LABS: Anion Gap 9 mmol/L (10-20); BUN (Urea Nitrogen) 27 mg/dL (9.8-20.1); Calc. Creatinine Clearance 19 mL/min (70-130); Carbon Dioxide 26 mmol/L (23-31); Chloride 112 mmol/L (98-107); Sodium 144 mmol/L (136-145)
[2022-01-13 05:42] LABS: Calcium 9.6 mg/dL (7.8-10.44); Estimated GFR 20; Glucose 151 mg/dL (80-115); Magnesium 1.7 mg/dL (1.6-2.6)
[2022-01-13] MEDS: Docusate 100 MG CAP PO SCH ×2 (08:39→20:58)
[2022-01-13] MEDS: Polyethylene Glycol 3350 17 GM Packet PO SCH (08:39)
[2022-01-13] MEDS: Calcitriol 0.25 MCG CAP PO SCH (08:40)
[2022-01-13] MEDS: NIFEdipine XL 90 MG TAB PO SCH ×2 (08:40→20:59)
[2022-01-13] MEDS: Sodium Bicarbonate 150 MEQ in Dextrose 5% in Water 1,000 ML IV SCH (08:41)
[2022-01-13] MEDS: Ferrous Sulfate 325 MG TAB PO SCH ×2 (08:41→17:36)
[2022-01-13] MEDS: Allopurinol 100 MG TAB PO SCH (08:41)
[2022-01-13] MEDS: Senokot S 8.6-50 MG TAB PO SCH ×2 (08:41→20:59)
[2022-01-13] MEDS: Carvedilol 25 MG TAB PO SCH ×2 (08:41→20:58)
[2022-01-13] MEDS: Benzonatate 100 MG CAP PO SCH ×3 (09:40→20:58)
[2022-01-13] MEDS: Atorvastatin Calcium 40 MG TAB PO SCH (20:58)
[2022-01-13] MEDS: Sodium Bicarbonate Tab 325 MG TAB PO SCH (20:59)
[2022-01-13] MEDS: Mirtazapine 15 MG TAB PO SCH (20:59)
[2022-01-14] MEDS: hydrALAZINE 25 MG TAB PO SCH ×4 (02:53→22:15)
[2022-01-14] MEDS ORDERED: Potassium Chloride 20 MEQ TAB PO SCH ×2 (07:15→12:00)
[2022-01-14 08:05] LABS: Anion Gap 12 mmol/L (10-20); BUN (Urea Nitrogen) 26 mg/dL (9.8-20.1); Calc. Creatinine Clearance 19 mL/min (70-130); Calcium 9.7 mg/dL (7.8-10.44); Carbon Dioxide 25 mmol/L (23-31); Chloride 108 mmol/L (98-107); Estimated GFR 20; Glucose 146 mg/dL (80-115); Magnesium 1.7 mg/dL (1.6-2.6); Potassium 3.2 mmol/L (3.5-5.1); Sodium 142 mmol/L (136-145)
[2022-01-14] MEDS: Ondansetron PF 4 MG/2 ML Vial IVP PRN ×2 (09:38→16:44)
[2022-01-14] MEDS: Docusate 100 MG CAP PO SCH ×2 (09:38→22:10)
[2022-01-14] MEDS: Polyethylene Glycol 3350 17 GM Packet PO SCH (09:38)
[2022-01-14] MEDS: Sodium Bicarbonate Tab 325 MG TAB PO SCH ×2 (09:40→22:11)
[2022-01-14] MEDS: Senokot S 8.6-50 MG TAB PO SCH ×2 (09:40→22:11)
[2022-01-14] MEDS: NIFEdipine XL 90 MG TAB PO SCH ×2 (10:44→22:11)
[2022-01-14] MEDS: Calcitriol 0.25 MCG CAP PO SCH (10:44)
[2022-01-14] MEDS: Benzonatate 100 MG CAP PO SCH ×3 (10:45→22:10)
[2022-01-14] MEDS: Carvedilol 25 MG TAB PO SCH ×2 (10:45→22:10)
[2022-01-14] MEDS: Allopurinol 100 MG TAB PO SCH (10:46)
[2022-01-14] MEDS ORDERED: Potassium Bicarbonate/Cit Ac 20 MEQ TAB PO SCH (11:15)
[2022-01-14] MEDS: Ferrous Sulfate 325 MG TAB PO SCH ×2 (13:04→16:44)
[2022-01-14] MEDS ORDERED: Fleet Enema 133 ML BOT PR SCH (13:15)
[2022-01-14] MEDS: Atorvastatin Calcium 40 MG TAB PO SCH (22:11)
[2022-01-14] MEDS: Mirtazapine 15 MG TAB PO SCH (22:11)
[2022-01-15] MEDS: hydrALAZINE 25 MG TAB PO SCH ×4 (02:48→20:50)
[2022-01-15] MEDS: Polyethylene Glycol 3350 17 GM Packet PO SCH (10:09)
[2022-01-15] MEDS: NIFEdipine XL 90 MG TAB PO SCH ×2 (10:11→20:49)
[2022-01-15] MEDS: Calcitriol 0.25 MCG CAP PO SCH (10:11)
[2022-01-15] MEDS: Docusate 100 MG CAP PO SCH ×2 (10:11→20:50)
[2022-01-15] MEDS: Sodium Bicarbonate Tab 325 MG TAB PO SCH ×2 (10:11→20:49)
[2022-01-15] MEDS: Benzonatate 100 MG CAP PO SCH ×3 (10:12→20:50)
[2022-01-15] MEDS: Ferrous Sulfate 325 MG TAB PO SCH ×2 (10:12→17:57)
[2022-01-15] MEDS: Senokot S 8.6-50 MG TAB PO SCH ×2 (10:13→20:50)
[2022-01-15] MEDS: Carvedilol 25 MG TAB PO SCH ×2 (10:13→20:51)
[2022-01-15] MEDS: Allopurinol 100 MG TAB PO SCH (10:13)
[2022-01-15] MEDS: Atorvastatin Calcium 40 MG TAB PO SCH (20:50)
[2022-01-15] MEDS: Mirtazapine 15 MG TAB PO SCH (20:51)
[2022-01-16] MEDS: hydrALAZINE 25 MG TAB PO SCH ×4 (03:20→21:40)
[2022-01-16] MEDS ORDERED: GUAIFENESIN SF SOLN 200 MG/10 ML UDCUP PO PRN (03:45)
[2022-01-16] MEDS: NIFEdipine XL 90 MG TAB PO SCH ×2 (08:58→21:39)
[2022-01-16] MEDS: Calcitriol 0.25 MCG CAP PO SCH (08:58)
[2022-01-16] MEDS: Polyethylene Glycol 3350 17 GM Packet PO SCH (08:58)
[2022-01-16] MEDS: Sodium Bicarbonate Tab 325 MG TAB PO SCH ×2 (08:58→21:39)
[2022-01-16] MEDS: Benzonatate 100 MG CAP PO SCH ×3 (08:59→21:40)
[2022-01-16] MEDS: Carvedilol 25 MG TAB PO SCH ×2 (08:59→21:40)
[2022-01-16] MEDS: Allopurinol 100 MG TAB PO SCH (08:59)
[2022-01-16] MEDS: Docusate 100 MG CAP PO SCH ×2 (08:59→21:40)
[2022-01-16] MEDS: Ferrous Sulfate 325 MG TAB PO SCH ×2 (08:59→18:51)
[2022-01-16] MEDS: Senokot S 8.6-50 MG TAB PO SCH ×2 (08:59→21:39)
[2022-01-16] MEDS: Mirtazapine 15 MG TAB PO SCH (21:40)
[2022-01-16] MEDS: Atorvastatin Calcium 40 MG TAB PO SCH (21:41)
[2022-01-17] MEDS: hydrALAZINE 25 MG TAB PO SCH ×2 (02:09→08:51)
[2022-01-17 05:26] LABS: #Eosinphils 0.2 thou/uL (0.0-0.7); #Lymphocytes 1.9 thou/uL (1.20-3.40); #Neutrophils 6.6 thou/uL (1.40-6.50); %Basophils 0.2 % (0.0-1.0); %Eosinophils 2.3 % (0.0-10.0); %Lymphocytes 19.5 % (21.0-51.0); %Monocytes 9.8 % (0.0-10.0); %Neutrophils 68.2 % (42.0-75.0); Hemoglobin 7.7 g/dL (12.0-16.0); Mean Corpuscular HGB CONC 31.7 g/dL (32.0-36.0); Mean Corpuscular Volume 91.4 fL (78.0-98.0); Mean Platelet Volume 8.1 fL (7.4-10.4); Platelet Count 334 thou/uL (130-400); RBC Distribution Width 13.1 % (11.5-14.5); Red Blood Cell (RBC) Count 2.67 mill/uL (4.20-5.40); White Blood Cell (WBC) Count 9.6 thou/uL (4.8-10.8)
[2022-01-17 05:41] LABS: Anion Gap 10 mmol/L (10-20); BUN (Urea Nitrogen) 24 mg/dL (9.8-20.1); Calc. Creatinine Clearance 20 mL/min (70-130); Calcium 9.7 mg/dL (7.8-10.44); Carbon Dioxide 30 mmol/L (23-31); Chloride 105 mmol/L (98-107); Estimated GFR 21; Glucose 114 mg/dL (80-115); Potassium 3.8 mmol/L (3.5-5.1); Sodium 141 mmol/L (136-145)
[2022-01-17] MEDS: Benzonatate 100 MG CAP PO SCH (08:51)
[2022-01-17] MEDS: Allopurinol 100 MG TAB PO SCH (08:51)
[2022-01-17] MEDS: Polyethylene Glycol 3350 17 GM Packet PO SCH (08:51)
[2022-01-17] MEDS: Sodium Bicarbonate Tab 325 MG TAB PO SCH (08:51)
[2022-01-17] MEDS: Calcitriol 0.25 MCG CAP PO SCH (08:51)
[2022-01-17] MEDS: Docusate 100 MG CAP PO SCH (08:51)
[2022-01-17] MEDS: Senokot S 8.6-50 MG TAB PO SCH (08:52)
[2022-01-17] MEDS: NIFEdipine XL 90 MG TAB PO SCH (08:52)
[2022-01-17] MEDS: Ferrous Sulfate 325 MG TAB PO SCH (08:52)
[2022-01-17] MEDS: Carvedilol 25 MG TAB PO SCH (08:52)
[2022-01-17 12:18] VITALS: BP 142/63; TEMP 98.7
[2022-01-17] MEDS ORDERED: Azithromycin 250 MG TAB PO SCH (13:00)
[2022-01-18] MEDS ORDERED: Azithromycin 250 MG TAB PO SCH (09:00)
== END 2022-01-17 13:26 | DRG 871 ==
LOC: ERS 14:31 → NEURO 17:09
PROVIDERS: ADMIT Hospitalist; ATTEND Hospitalist
PROC: 3E03329 Introduction of Other Anti-infective into Peripheral Vein, Percutaneous Approach (ICD-10-PCS; principal; 2022-01-03)
PROC: 8E0ZXY6 Isolation (ICD-10-PCS; 2022-01-03)
PROC: 30233N1 Transfusion of Nonautologous Red Blood Cells into Peripheral Vein, Percutaneous Approach (ICD-10-PCS; 2022-01-06)
DX: A41.89 Other specified sepsis (principal); U07.1 COVID-19; G93.41 Metabolic encephalopathy; J12.82 Pneumonia due to coronavirus disease 2019; A08.39 Other viral enteritis; N18.4 Chronic kidney disease, stage 4 (severe); E44.0 Moderate protein-calorie malnutrition; N17.9 Acute kidney failure, unspecified; I13.0 Hypertensive heart and chronic kidney disease with heart failure and stage 1 through stage 4 chronic kidney disease, or unspecified chronic kidney disease; R65.20 Severe sepsis without septic shock; I08.1 Rheumatic disorders of both mitral and tricuspid valves; F41.9 Anxiety disorder, unspecified; E11.22 Type 2 diabetes mellitus with diabetic chronic kidney disease; I50.9 Heart failure, unspecified; R77.8 Other specified abnormalities of plasma proteins; D63.1 Anemia in chronic kidney disease; I45.10 Unspecified right bundle-branch block; R33.9 Retention of urine, unspecified; E87.6 Hypokalemia; E83.42 Hypomagnesemia; Z68.21 Body mass index [BMI] 21.0-21.9, adult; Z98.51 Tubal ligation status; Z79.899 Other long term (current) drug therapy
CPT/HCPCS: 36415; 36416; 36430; 70450; 71045; 71046; 74018; 74176; 78451; 80048; 80053; 80202; 80306; 81001; 82274; 82550; 82553; 82728; 83540; 83550; 83605; 83615; 83690; 83735; 83880; 84145; 84443; 84484; 85014; 85018; 85025; 85046; 85049; 85379; 85730; 86850; 86900; 86901; 87040; 87086; 93005; 96365; 96366; A9540; C9113; J0692; J1644; J1815; J2405; J2765; J3370; J3475; J3490; J7050; J7070; P9016; S0028; U0003; U0005